=== PATIENT | male | born 1945 ===

== ENCOUNTER 2024-12-14 08:17 | Outpatient (CLI) | payer OTHER, MEDICAID | END 2024-12-14 17:00 | disposition home or self-care (01) | LOC: Rad HDHVI 08:17 | PROVIDERS: ATTEND Internal Medicine Cardiovascular Disease | DX: R07.89 Other chest pain (principal) | CPT/HCPCS: 93306 ==

== ENCOUNTER 2024-12-18 08:32 | Outpatient (CLI) | payer OTHER, MEDICAID ==
[~2024-12-18] VITALS: Ht 182.9 cm; Wt 79.4 kg
[2024-12-18] MEDS ORDERED: ADENOSINE 90 MG/30 ML INJ IV ONE (10:29)
[2024-12-18] MEDS ORDERED: ADENOSINE 67 MG in GIVE UN-DILUTED 0 ML IV ONE (11:00)
== END 2024-12-18 17:00 | disposition home or self-care (01) ==
LOC: Rad HDHVI 08:32
PROVIDERS: ATTEND Internal Medicine Cardiovascular Disease
DX: R07.89 Other chest pain (principal); R00.1 Bradycardia, unspecified; R42 Dizziness and giddiness; Z13.6 Encounter for screening for cardiovascular disorders; F17.210 Nicotine dependence, cigarettes, uncomplicated; Z79.82 Long term (current) use of aspirin; Z86.73 Personal history of transient ischemic attack (TIA), and cerebral infarction without residual deficits
CPT/HCPCS: 78452; 93017; A9500; J0153

== ENCOUNTER 2025-01-13 09:12 | Outpatient (CLI) | payer OTHER, MEDICAID | END 2025-01-13 17:00 | disposition home or self-care (01) | LOC: Rad HDHVI 09:12 | PROVIDERS: ATTEND Internal Medicine Cardiovascular Disease | DX: I65.21 Occlusion and stenosis of right carotid artery (principal); R07.89 Other chest pain | CPT/HCPCS: 93880 ==